=== PATIENT | female | born 1950 | race Caucasian/White ===

== ENCOUNTER → 2016-07-20 | Outpatient (CLI) | payer OTHER ==
[2016-07-20 09:12] LABS: BASOPHILS % (AUTO) 0.2 % (0.2-1.0); EOSINOPHILS # (AUTO) 0.1 x10^3/uL (0.0-0.2); EOSINOPHILS % (AUTO) 0.9 % (0.9-2.9); HEMATOCRIT 36.5 % (36.0-47.0); LYMPHOCYTES # (AUTO) 2.5 X10^3/uL (1.3-2.9); LYMPHOCYTES % (AUTO) 25.7 % (21.0-51.0); MEAN CORPUSCULAR HEMOGLOBIN 28.3 pg (27.0-34.0); MEAN CORPUSCULAR HGB CONC 32.9 g/dL (33.0-35.0); MEAN CORPUSCULAR VOLUME 86.2 fL (80.0-100.0); MEAN PLATELET VOLUME 7.6 fL (7.4-11.0); MONOCYTES # (AUTO) 0.7 x10^3/uL (0.3-0.8); MONOCYTES % (AUTO) 7.2 % (0.0-13.0); NEUTROPHILS # (AUTO) 6.4 x10^3/uL (2.2-4.8); PLATELET COUNT 258 X10^3/uL (150.0-450.0); RED BLOOD COUNT 4.24 X10^6/uL (3.5-5.4); RED CELL DISTRIBUTION WIDTH 13.7 % (11.6-16.5); WHITE BLOOD COUNT 9.7 X10^3/uL (3.6-10.0)
[2016-07-20 09:25] LABS: BILIRUBIN,URINE NEGATIVE (NEGATIVE); BLOOD/HEMOGLOBIN,URINE NEGATIVE (NEGATIVE); GLUCOSE, URINE NEGATIVE (NEGATIVE); KETONES,URINE NEGATIVE (NEGATIVE); LEUKOCYTE ESTERASE ,URINE 2+ (NEGATIVE); NITRITES,URINE NEGATIVE (NEGATIVE); PROTEIN,URINE NEGATIVE (NEGATIVE); UROBILINOGEN,URINE NORMAL (NORMAL)
[2016-07-20 09:34] LABS: ALANINE AMINOTRANSFERASE 21 Units/L (12-78); ALBUMIN 3.5 g/dL (3.4-5.0); ALKALINE PHOSPHATASE 70 Units/L (46-116); ASPARTATE AMINO TRANSFERASE 12 Units/L (15-37); BLOOD UREA NITROGEN 10 mg/dL (7-18); CALCIUM 8.6 mg/dL (8.5-10.1); CHLORIDE 109 mmol/L (98-107); GLUCOSE 92 mg/dL (65-99); SODIUM 145 mmol/L (136-145); TOTAL PROTEIN 7.2 g/dL (6.4-8.2); eGFR BLACK RACES > 60 (>60); eGFR NON BLACK RACES > 60 (>60)
[2016-07-20 09:50] LABS: AMORPHOUS SEDIMENT,UR 1+ /HPF (NEGATIVE); APPEARANCE,URINE CLEAR (CLEAR); BACTERIA,URINE NEGATIVE /HPF (NEGATIVE); COLOR,URINE PALE YELLOW (YELLOW); RBC,URINE NONE SEEN /HPF (NEGATIVE); SQUAMOUS EPITHELIAL CELL,UR RARE /HPF (NEGATIVE)
== END ==
LOC: LAB 08:36
PROVIDERS: ATTEND Neurological Surgery
DX: Z01.812 Encounter for preprocedural laboratory examination (principal); Z79.01 Long term (current) use of anticoagulants; G89.4 Chronic pain syndrome; M47.26 Other spondylosis with radiculopathy, lumbar region; Z79.899 Other long term (current) drug therapy
CPT/HCPCS: 36415; 80053; 81001; 85025

== ENCOUNTER → 2016-12-27 | Outpatient (CLI) | payer OTHER ==
[2016-12-27 10:42] LABS: ALANINE AMINOTRANSFERASE 22 Units/L (12-78); ALBUMIN 3.8 g/dL (3.4-5.0); ALKALINE PHOSPHATASE 53 Units/L (46-116); ASPARTATE AMINO TRANSFERASE 22 Units/L (15-37); BLOOD UREA NITROGEN 7 mg/dL (7-18); CALCIUM 8.6 mg/dL (8.5-10.1); CARBON DIOXIDE 27.2 mmol/L (21-32); CHLORIDE 107 mmol/L (98-107); CHOL/HDL RATIO 2.5 (0.0-5.0); CHOLESTEROL 131 mg/dL (0-200); CREATININE 0.65 mg/dL (0.55-1.02); FREE T4 (FREE THYROXINE) 1.16 ng/dL (0.76-1.46); HDL CHOLESTEROL 52 mg/dL (40-60); SODIUM 144 mmol/L (136-145); TOTAL PROTEIN 7.3 g/dL (6.4-8.2); TRIGLYCERIDES 161 mg/dL (0-150); TSH (3RD GENERATION) 2.984 uIU/mL (0.358-3.74); eGFR BLACK RACES > 60 (>60); eGFR NON BLACK RACES > 60 (>60)
== END ==
LOC: LAB 09:53
PROVIDERS: ATTEND Family Medicine
DX: E78.4 Other hyperlipidemia (principal); Z79.899 Other long term (current) drug therapy; E55.9 Vitamin D deficiency, unspecified; E03.8 Other specified hypothyroidism
CPT/HCPCS: 36415; 80053; 80061; 82306; 84439; 84443

== ENCOUNTER → 2017-07-23 | Outpatient (CLI) | payer OTHER ==
[2017-07-23 17:02] LABS: FREE T4 (FREE THYROXINE) 1.22 ng/dL (0.76-1.46); TSH (3RD GENERATION) 0.738 uIU/mL (0.358-3.74)
== END ==
LOC: LAB 16:20
PROVIDERS: ATTEND Family Medicine
DX: E03.8 Other specified hypothyroidism (principal); Z79.899 Other long term (current) drug therapy; R79.89 Other specified abnormal findings of blood chemistry
CPT/HCPCS: 36415; 83540; 83550; 84439; 84443

== ENCOUNTER 2023-09-14 13:39 | Inpatient (IN) ==
[2023-09-14] MEDS ORDERED: VOLTAREN 1 % GEL MULTI DOSE TUBE TOP PRN (13:57)
[2023-09-14] MEDS ORDERED: NYSTATIN SUSP PO PRN (13:57)
[2023-09-14] MEDS ORDERED: ASPIRIN EC 81 MG PO ONE (14:02)
[2023-09-14] MEDS ORDERED: NITROSTAT SL ONE (14:02)
[2023-09-14] MEDS ORDERED: SINGULAIR TAB 10 MG PO PRN (17:00)
[2023-09-14] MEDS: NORCO 5/325 MG TAB PO PRN (17:52)
[2023-09-14] MEDS: ZOFRAN ODT PO PRN (17:54)
[2023-09-14] MEDS: CARAFATE ORAL SUSP PO SCH (17:54)
[2023-09-14] MEDS: COREG TAB 12.5 MG PO SCH (21:14)
[2023-09-14] MEDS: EFFEXOR TAB 75 MG (BID DOSING) PO SCH (21:14)
[2023-09-14] MEDS: DESYREL PO SCH (21:14)
[2023-09-14] MEDS: ISOSORBIDE DINITRATE PO SCH (21:14)
[2023-09-14] MEDS: MELATONIN PO SCH (21:14)
[2023-09-14] MEDS: PLAQUENIL PO SCH (21:15)
[2023-09-14] MEDS: LIPITOR TAB 40 MG PO SCH (21:15)
[2023-09-14] MEDS: LYRICA CAP 50 mg PO SCH (21:15)
[2023-09-14] MEDS: MAG-OX TAB PO SCH (21:15)
[2023-09-15] MEDS: SYNTHROID 125 mcg TAB PO SCH (05:42)
[2023-09-15] MEDS: PriLOSEC PO SCH (08:14)
[2023-09-15] MEDS: PLAVIX PO SCH (08:15)
[2023-09-15] MEDS: ASPIRIN EC 81 MG PO ONE (08:27)
[2023-09-15] MEDS: VITAMIN B-12 PO SCH (08:27)
[2023-09-15] MEDS ORDERED: [UNRECOGNIZED DRUG - REMARK] XX SCH (09:00)
[2023-09-15 09:45] LABS: BASOPHILS # (AUTO) 0.1 X10^3/uL (0.0-0.1); BASOPHILS % (AUTO) 0.7 % (0.2-1.0); EOSINOPHILS # (AUTO) 0.9 x10^3/uL (0.0-0.2); EOSINOPHILS % (AUTO) 6.9 % (0.9-2.9); HEMATOCRIT 27.1 % (36.0-47.0); HEMOGLOBIN 9.2 g/dL (12.0-16.0); LYMPHOCYTES # (AUTO) 1.4 X10^3/uL (1.3-2.9); LYMPHOCYTES % (AUTO) 10.6 % (21.0-51.0); MEAN CORPUSCULAR HEMOGLOBIN 29.7 pg (27.0-34.0); MEAN CORPUSCULAR HGB CONC 33.8 g/dL (33.0-35.0); MEAN CORPUSCULAR VOLUME 87.7 fL (80.0-100.0); MONOCYTES # (AUTO) 0.9 x10^3/uL (0.3-0.8); MONOCYTES % (AUTO) 6.7 % (0.0-13.0); NEUTROPHILS # (AUTO) 10.1 x10^3/uL (2.2-4.8); NEUTROPHILS % (AUTO) 75.1 % (42.0-75.0); PLATELET COUNT 426 X10^3/uL (150.0-450.0); RED BLOOD COUNT 3.09 X10^6/uL (3.5-5.4); RED CELL DISTRIBUTION WIDTH 14.1 % (11.6-16.5); WHITE BLOOD COUNT 13.5 X10^3/uL (3.6-10.0)
[2023-09-15 09:57] LABS: ALANINE AMINOTRANSFERASE 21 Units/L (12-78); ALBUMIN 2.2 g/dL (3.4-5.0); ALKALINE PHOSPHATASE 88 Units/L (46-116); ASPARTATE AMINO TRANSFERASE 20 Units/L (15-37); BLOOD UREA NITROGEN 4 mg/dL (7-18); CALCIUM 7.8 mg/dL (8.5-10.1); CARBON DIOXIDE 25.4 mmol/L (21-32); CHLORIDE 106 mmol/L (98-107); COR CA(FOR HYPOALB) 9.2 mg/dL (8.5-10.1); CREATININE 0.49 mg/dL (0.55-1.02); GLUCOSE 100 mg/dL (65-99); POTASSIUM 3.8 mmol/L (3.5-5.1); SODIUM 138 mmol/L (136-145); TOTAL PROTEIN 5.5 g/dL (6.4-8.2); eGFR NON BLACK RACES > 60 (>60)
--- NOTE | 2023-09-15 14:46 | DR.H&P ---
H&P History & Physical for Day of: H&P Date: 09/15/23 Chief Complaint Chief Complaint: Generalized weakness History of Present Illness History of Present Illness: Patient is a 73-year-old female that was admitted to swing bed status after having colovaginal fistula repair along with aorta repair. Physical therapy has been ordered and patient will be working with them. She currently has Nev[place] in place due to urinary retention. Labs: WBC 13.5, hemoglobin 9.2, platelets 426, sodium 138, potassium 3.8, creatinine 0.49, glucose 100. Will restart home medications including pain medication. Physical therapy has been ordered. Otherwise continue current treatment plan. Continue closely monitor and follow-up labs. Past Surgical History Surgical History: Hysterectomy Family History Family Medical History: Hypertension Medications Home Medications: Home Medications Medication Instructions Recorded Confirmed Type atorvastatin 40 mg tablet 40 mg PO DAILY 06/13/21 09/15/23 History carvedilol 12.5 mg tablet 12.5 mg PO BID 06/13/21 09/15/23 History clopidogrel 75 mg tablet 75 mg PO HS 06/13/21 09/15/23 History hydrocodone 10 mg-acetaminophen 10 - 325 tab PO Q4-6H PRN 06/13/21 09/15/23 History 325 mg tablet hydroxychloroquine 200 mg tablet 200 mg PO DAILY 06/13/21 09/15/23 History isosorbide dinitrate 5 mg tablet 5 mg PO BID 06/13/21 09/15/23 History levothyroxine 125 mcg tablet 125 mcg PO QAM 06/13/21 09/15/23 History metoclopramide HCl 5 mg tablet 5 mg PO QID 06/13/21 09/15/23 History montelukast 10 mg tablet 10 mg PO DAILY 06/13/21 09/15/23 History omeprazole 40 mg capsule,delayed 40 mg PO BID 06/13/21 09/15/23 History release ferric maltol 30 mg capsule 30 mg PO BID 09/15/23 09/15/23 History (Eduardoer) trazodone 150 mg tablet 150 mg PO QPM 09/15/23 09/15/23 History Allergies Allergies Allergy/AdvReac Type Severity Reaction Status Date / Time No Known Drug Allergies Allergy Verified 09/14/23 17:40 Labs 09/15/23 09:41 09/15/23 09:41 Labs: Laboratory WBC 13.5 X10^3/uL (3.6-10.0) H 09/15/23 09:41 RBC 3.09 X10^6/uL (3.5-5.4) L 09/15/23 09:41 Hgb 9.2 g/dL (12.0-16.0) L 09/15/23 09:41 Hct 27.1 % (36.0-47.0) L 09/15/23 09:41 MCV 87.7 fL (80.0-100.0) 09/15/23 09:41 MCH 29.7 pg (27.0-34.0) 09/15/23 09:41 MCHC 33.8 g/dL (33.0-35.0) 09/15/23 09:41 RDW 14.1 % (11.6-16.5) 09/15/23 09:41 Plt Count 426 X10^3/uL (150.0-450.0) 09/15/23 09:41 MPV 7.0 fL (7.4-11.0) L 09/15/23 09:41 Neut % (Auto) 75.1 % (42.0-75.0) H 09/15/23 09:41 Lymph % (Auto) 10.6 % (21.0-51.0) L 09/15/23 09:41 [place] % (Auto) 6.7 % (0.0-13.0) 09/15/23 09:41 Eos % (Auto) 6.9 % (0.9-2.9) H 09/15/23 09:41 Baso % (Auto) 0.7 % (0.2-1.0) 09/15/23 09:41 Neut # (Auto) 10.1 x10^3/uL (2.2-4.8) H 09/15/23 09:41 Lymph # (Auto) 1.4 X10^3/uL (1.3-2.9) 09/15/23 09:41 [place] # (Auto) 0.9 x10^3/uL (0.3-0.8) H 09/15/23 09:41 Eos # (Auto) 0.9 x10^3/uL (0.0-0.2) H 09/15/23 09:41 Baso # (Auto) 0.1 X10^3/uL (0.0-0.1) 09/15/23 09:41 Absolute Nucleated RBC 0.0 /100WBC 09/15/23 09:41 Sodium 138 mmol/L (136-145) 09/15/23 09:41 Corrected Sodium TNP 09/15/23 09:41 Potassium 3.8 mmol/L (3.5-5.1) 09/15/23 09:41 Chloride 106 mmol/L (98-107) 09/15/23 09:41 Carbon Dioxide 25.4 mmol/L (21-32) 09/15/23 09:41 BUN 4 mg/dL (7-18) L 09/15/23 09:41 Creatinine 0.49 mg/dL (0.55-1.02) L 09/15/23 09:41 Est GFR (MDRD) Af Amer > 60 (>60) 09/15/23 09:41 Est GFR (MDRD) Non-Af > 60 (>60) 09/15/23 09:41 Glucose 100 mg/dL (65-99) H 09/15/23 09:41 Calcium 7.8 mg/dL (8.5-10.1) L 09/15/23 09:41 Corrected Calcium 9.2 mg/dL (8.5-10.1) 09/15/23 09:41 Total Bilirubin 0.40 mg/dL (0.2-1.0) 09/15/23 09:41 AST 20 Units/L (15-37) 09/15/23 09:41 ALT 21 Units/L (12-78) 09/15/23 09:41 Alkaline Phosphatase 88 Units/L (46-116) 09/15/23 09:41 Total Protein 5.5 g/dL (6.4-8.2) L 09/15/23 09:41 Albumin 2.2 g/dL (3.4-5.0) L 09/15/23 09:41 Globulin 3.3 g/dL (2.5-4.5) 09/15/23 09:41 Albumin/Globulin Ratio 0.7 Ratio (1.1-2.1) L 09/15/23 09:41 Review of Systems Constitutional: No Symptoms Reported Eyes: No Symptoms Reported ENT: No Symptoms Reported Respiratory: No Symptoms Reported Cardiovascular: No Symptoms Reported Gastrointestinal: Abdominal Pain Genitourinary: No Symptoms Reported Musculoskeletal: No Symptoms Reported Skin: No Symptoms Reported Neurological: No Symptoms Reported Physical Exam Vital Signs: Vital Signs Respiratory Rate 18 Oriented: Normal Eyes: Normal Ear: Normal Nose: Normal Throat: Normal Respiratory: Clear Throughout Cardiovascular: Normal : Normal Auscultation: Bowel Sounds: Normal Palpation: Normal Tenderness: Mild Skin: Other (abdominal mark noted) Musculoskeletal: Normal Psychiatric: Normal Mood Description: Calm and Appropriate Affect: Normal Speech Pattern: Clear and Appropriate Assessment/Plan (1) Colovaginal fistula: Status: Acute (2) Hypothyroidism: Status: Acute (3) GERD (gastroesophageal reflux disease): Status: Acute (4) Hyperlipidemia: Status: Acute (5) Hypertension: Status: Acute Review H&P Reviewed: Yes Patient was examined?: Yes
[2023-09-15] MEDS: NORCO 10/325 TAB PO PRN (14:48)
--- NOTE | 2023-09-15 16:41 | PT/OTEVAL ---
PT/OT OBJECTIVES - HISTORY Precautions: Rapid fatigue PMH: Colovaginal fistula with aortic repair, HTN, CAD (on anticoagulants) Complexities/Comorbities: Diverticulosis Prior Level of Function: Independent - COGNITION Mental Status: Alert Communication Status: Verbal Affect: Calm - BED MOBILITY Rolling: Independent - TRANSFERS Supine to Sit: Supervision Sit to Stand: Minimal, Not Tested Sit to Stand Comment: Needed to hold onto something to pull to sitting Sit or Stand Pivot: Minimal Toileting: Not Tested - GAIT Pt. ambulates how many feet?: 0 (Gait deferred due to fatigue) - TREATMENT Date: 09/15/23 Treatment Type: Evaluation Treatment Provided: Therapeutic Activities - TOTAL TREATMENT TIME Total Time: 60 - EXIT DISPOSITION Exit Position: CHAIR Comments: Nursing aware; transfers with Min A/CGA PT/OT ASSESSMENT - PT Problem List: Decreased Transfers, Decreased Gait Other, Comment: Poor endurance - PT GOALS Car Dumper Operator Helper Goals Transfers: Transfers with RI Gait: Gait 50' with CGA/SBA ROM/Strength: Increase BLE ROM to 4+/5 to enhance endurance Short Term Goals Days: 5 Mobility: CGA Transfers: SBA Gait: Gait 20' with FWW with CGA - FREQUENCY AND DURATION PT: 5-6X per week Expected Continuation of Care at Discharge: Outpatient Therapy, Determined on Progress Comments: Will need FWW
[2023-09-15] MEDS: SOMA TAB 350 MG PO PRN (18:31)
[2023-09-16 07:54] VITALS: BMI 25.9
[2023-09-17 06:16] LABS: BASOPHILS # (AUTO) 0.1 X10^3/uL (0.0-0.1); BASOPHILS % (AUTO) 0.7 % (0.2-1.0); EOSINOPHILS % (AUTO) 10.3 % (0.9-2.9); HEMATOCRIT 26.9 % (36.0-47.0); HEMOGLOBIN 9.3 g/dL (12.0-16.0); LYMPHOCYTES # (AUTO) 1.6 X10^3/uL (1.3-2.9); LYMPHOCYTES % (AUTO) 16.6 % (21.0-51.0); MEAN CORPUSCULAR HEMOGLOBIN 30.5 pg (27.0-34.0); MEAN CORPUSCULAR HGB CONC 34.6 g/dL (33.0-35.0); MEAN CORPUSCULAR VOLUME 88.2 fL (80.0-100.0); MEAN PLATELET VOLUME 7.1 fL (7.4-11.0); MONOCYTES # (AUTO) 0.9 x10^3/uL (0.3-0.8); NEUTROPHILS # (AUTO) 6.3 x10^3/uL (2.2-4.8); NEUTROPHILS % (AUTO) 63.4 % (42.0-75.0); PLATELET COUNT 394 X10^3/uL (150.0-450.0); RED BLOOD COUNT 3.05 X10^6/uL (3.5-5.4); RED CELL DISTRIBUTION WIDTH 13.9 % (11.6-16.5)
[2023-09-17 06:38] LABS: ALANINE AMINOTRANSFERASE 16 Units/L (12-78); ALBUMIN 2.4 g/dL (3.4-5.0); ALKALINE PHOSPHATASE 87 Units/L (46-116); ASPARTATE AMINO TRANSFERASE 16 Units/L (15-37); BLOOD UREA NITROGEN 7 mg/dL (7-18); CALCIUM 8.2 mg/dL (8.5-10.1); CARBON DIOXIDE 28.8 mmol/L (21-32); CHLORIDE 104 mmol/L (98-107); COR CA(FOR HYPOALB) 9.5 mg/dL (8.5-10.1); CREATININE 0.59 mg/dL (0.55-1.02); GLUCOSE 85 mg/dL (65-99); POTASSIUM 3.9 mmol/L (3.5-5.1); SODIUM 138 mmol/L (136-145); TOTAL PROTEIN 5.6 g/dL (6.4-8.2); eGFR NON BLACK RACES > 60 (>60)
--- NOTE | 2023-09-17 11:42 | PCM.PROG ---
Progress Note Progress Note for Day of Date of Exam: 09/17/23 Subjective Subjective: Patient seen at bedside, no acute events overnight. She is currently admitted as swing bed status after having colovaginal fistula and aorta repair. She has been doing well since she got here. She did work with therapy on Sunday. Her abdominal pain is well-controlled, dressing was changed yesterday, Labs/imaging reviewed -Hgb 9.3 WBC:10 Plan: continue PT/OT as tolerated. Continue home medications. Replace electrolytes as per protocol. Check labs prn. Past Medical Family Social History Allergies: Allergies No Known Drug Allergies Allergy (Verified 09/14/23 17:40) Vital Signs and I&O's Vital Signs: Vital Signs Respiratory Rate 18 Respiratory Rate 18 Respiratory Rate 20 Intake and Output: Intake & Output 09/14/23 09/15/23 09/16/23 09/17/23 23:59 23:59 23:59 23:59 Intake Total 300 / 300 300 / 300 200 / 200 100 / 100 Output Total 600 / 600 2600 / 2600 300 / 300 Balance -300 / -300 -2300 / -2300 -100 / -100 100 / 100 Physical Exam Oriented: Normal Eyes: Normal Ear: Normal Nose: Normal Throat: Normal Cardiovascular: Normal Auscultation: Bowel Sounds: Normal Palpation: Normal Tenderness: Mild Skin: Other (abdominal mark noted) Musculoskeletal: Normal Psychiatric: Normal Mood Description: Calm and Appropriate Affect: Normal Speech Pattern: Clear and Appropriate Laboratory and Diagnostics 09/17/23 05:32 09/17/23 05:32 Labs: Laboratory WBC 10.0 X10^3/uL (3.6-10.0) 09/17/23 05:32 RBC 3.05 X10^6/uL (3.5-5.4) L 09/17/23 05:32 Hgb 9.3 g/dL (12.0-16.0) L 09/17/23 05:32 Hct 26.9 % (36.0-47.0) L 09/17/23 05:32 MCV 88.2 fL (80.0-100.0) 09/17/23 05:32 MCH 30.5 pg (27.0-34.0) 09/17/23 05:32 MCHC 34.6 g/dL (33.0-35.0) 09/17/23 05:32 RDW 13.9 % (11.6-16.5) 09/17/23 05:32 Plt Count 394 X10^3/uL (150.0-450.0) 09/17/23 05:32 MPV 7.1 fL (7.4-11.0) L 09/17/23 05:32 Neut % (Auto) 63.4 % (42.0-75.0) 09/17/23 05:32 Lymph % (Auto) 16.6 % (21.0-51.0) L 09/17/23 05:32 [place] % (Auto) 9.0 % (0.0-13.0) 09/17/23 05:32 Eos % (Auto) 10.3 % (0.9-2.9) H 09/17/23 05:32 Baso % (Auto) 0.7 % (0.2-1.0) 09/17/23 05:32 Neut # (Auto) 6.3 x10^3/uL (2.2-4.8) H 09/17/23 05:32 Lymph # (Auto) 1.6 X10^3/uL (1.3-2.9) 09/17/23 05:32 [place] # (Auto) 0.9 x10^3/uL (0.3-0.8) H 09/17/23 05:32 Eos # (Auto) 1.0 x10^3/uL (0.0-0.2) H 09/17/23 05:32 Baso # (Auto) 0.1 X10^3/uL (0.0-0.1) 09/17/23 05:32 Absolute Nucleated RBC 0.0 /100WBC 09/17/23 05:32 Sodium 138 mmol/L (136-145) 09/17/23 05:32 Corrected Sodium TNP 09/17/23 05:32 Potassium 3.9 mmol/L (3.5-5.1) 09/17/23 05:32 Chloride 104 mmol/L (98-107) 09/17/23 05:32 Carbon Dioxide 28.8 mmol/L (21-32) 09/17/23 05:32 BUN 7 mg/dL (7-18) 09/17/23 05:32 Creatinine 0.59 mg/dL (0.55-1.02) 09/17/23 05:32 Est GFR (MDRD) Af Amer > 60 (>60) 09/17/23 05:32 Est GFR (MDRD) Non-Af > 60 (>60) 09/17/23 05:32 Glucose 85 mg/dL (65-99) 09/17/23 05:32 Calcium 8.2 mg/dL (8.5-10.1) L 09/17/23 05:32 Corrected Calcium 9.5 mg/dL (8.5-10.1) 09/17/23 05:32 Total Bilirubin 0.50 mg/dL (0.2-1.0) 09/17/23 05:32 AST 16 Units/L (15-37) 09/17/23 05:32 ALT 16 Units/L (12-78) 09/17/23 05:32 Alkaline Phosphatase 87 Units/L (46-116) 09/17/23 05:32 Total Protein 5.6 g/dL (6.4-8.2) L 09/17/23 05:32 Albumin 2.4 g/dL (3.4-5.0) L 09/17/23 05:32 Globulin 3.2 g/dL (2.5-4.5) 09/17/23 05:32 Albumin/Globulin Ratio 0.8 Ratio (1.1-2.1) L 09/17/23 05:32 Plan (1) Colovaginal fistula: Status: Acute (2) Hypothyroidism: Status: Acute Qualifiers: Hypothyroidism type: acquired Qualified Code(s): E03.9 - Hypothyroidism, unspecified (3) GERD (gastroesophageal reflux disease): Status: Acute Qualifiers: Esophagitis presence: esophagitis presence not specified Qualified Code(s): K21.9 - Gastro-esophageal reflux disease without esophagitis (4) Hyperlipidemia: Status: Acute Qualifiers: Hyperlipidemia type: mixed hyperlipidemia Qualified Code(s): E78.2 - Mixed hyperlipidemia (5) Hypertension: Status: Acute Qualifiers: Hypertension type: primary hypertension Qualified Code(s): I10 - Essential (primary) hypertension
--- NOTE | 2023-09-17 16:18 | PT/OTEVAL ---
PT/OT OBJECTIVES - HISTORY Prescription: OT Consult Diagnosis: Colovaginal fistula/aortic repair Precautions: Fall risk PMH: HLD, Hypothyroidism, Asthma, GERD, CAD, Spinal Fusion (5 total back surgeries) Prior Level of Function: Independent Other: Per pt report pt lives with her in a 1 story home with 1 step without handrails. She is (I) with ADLs and IADLs. She uses a rollator at night to get to the restroom at night. DME includes a shower bench, and said she can borrow a BSC from a friend if she needs it. Stated that she has back pain across her back and it runs down her legs 8/10 consistently. History of Present Illness: Pt is a 73 year old female who was admitted to [facility] on the afternoon of 09/14/2023 for swing bed program for rehab due to recent hospitalization and inability to safely return home. Pt was admitted to hospital in [place] for colovaginal fistula and underwent sigmoid colectomy and aortic repair on 09/03/2023 with her hospital course complicated by urinary retention and stay in the ICU. - COGNITION Mental Status: Alert, Oriented, Name, Place, Purpose Communication Status: Verbal Ability to Follow Directions: 2 Step Memory Loss: None Affect: Calm - BED MOBILITY Rolling: Supervision - TRANSFERS Supine to Sit: Supervision Sit to Stand: Supervision Sit or Stand Pivot: Supervision Toileting: Supervision - ADL'S Grooming: Minimum Upper Body ADL: Supervision Lower Body ADL: Minimum Lower Body ADL: Difficulty with reaching feet and getting pants/underwear up Toileting: Supervision Bathing: Minimum Bathing Comment: Difficulty with getting to feet. Hygeine: Supervision - BALANCE Static Sitting: Fair Standing: Fair Balance Comment: CGA for sitting balance, with VC for leaning backwards for to maintain balance. - HAND DOMINANCE Extremity Function: Hand Dominance: Right - ROM Bilateral UE ROM: WFL - STRENGTH Bilateral UE Strength Number: 4 Other comment: 4-/5 in BUE - GAIT Amount of Assistance Required: Supervision Type of Assistive Device: Rolling Walker Comments: CGA for safety - TREATMENT Date: 09/17/23 Time: 09:00 Treatment Type: Evaluation Treatment Provided: Other - TOTAL TREATMENT TIME Total Time: 70 - POST ASSESSMENT Post Assessment Comment: Pt was seen by skilled OT to assess CLOF. Pt was able to give PLOF and hx. Pt completed showering task this date. Pt showered with min A for LB and supv A for UB, with therapist A with bathing her back. Pt would benefit from a long handle sponge to reach her feet and her back. Pt fu nctionally AMB with RW and CGA for safety due to unsteadiness. Pt requires extra time during shower activity, as she fatigues easily. MIN A with donning pants and socks and completing grooming due to fatigue. Pt got back into bed due to fatigue. Pt would continue to benefit from skilled OT to improve (I) and safety with ADL self care skills, FAT, MMT functional transfers and balance needed to facilitate safe d/c planning. - EXIT DISPOSITION Exit Position: BED Call light in reach: Yes PT/OT ASSESSMENT - OT Problem List: Decreased Mobility ADL's, Decreased Dressing, Decreased Bathing, Decreased Grooming, Decreased UE Strength - PT GOALS Long-Term Goals Transfers: Gait: ROM/Strength: Short Term Goals Days: Mobility: Transfers: Gait: - OT GOALS Liquefaction And Regasification Helper Goals Days: 20 Mobility for ADL's: Pt to improve functional mobility to bathroom with LRAD and set up A. Dressing: Pt to improve LB dressing to set up A Bathing: Pt to improve overall bathing to set up A with AE as needed Upper Ext. Strength/Use: Pt to improve MMT in BUE by 1 grade Short Term Goals Days: 10 Mobility for ADL's: Pt to improve functional mobility to bathroom with LRAD and supv A. Dressing: Pt to improve UB dressing to set up A Bathing: Pt to improve overall bathing to supv A with AE as needed Grooming: Pt to improve grooming to (I) - PATIENT GOALS Patient/Family Goals: To go home and be (I) Goals Discussed with Patient/Family: Yes Rehabilitation Potential: Good to meet stated goals Justification for Potential: To facilitate highest level of ADL function needed for safe d/c planning. Weakness and Barriers: Pain - PLAN Suggested Treatment Plan: Therapeutic Activity, Self Care Training, Therapeutic Ex with HEP, Patient Education - FREQUENCY AND DURATION OT: 5x a week x 20 days Expected Continuation of Care at Discharge: Home
[2023-09-19 06:47] LABS: BASOPHILS # (AUTO) 0.1 X10^3/uL (0.0-0.1); BASOPHILS % (AUTO) 0.9 % (0.2-1.0); EOSINOPHILS # (AUTO) 0.7 x10^3/uL (0.0-0.2); EOSINOPHILS % (AUTO) 6.5 % (0.9-2.9); HEMATOCRIT 28.5 % (36.0-47.0); HEMOGLOBIN 9.7 g/dL (12.0-16.0); LYMPHOCYTES # (AUTO) 1.9 X10^3/uL (1.3-2.9); LYMPHOCYTES % (AUTO) 18.4 % (21.0-51.0); MEAN CORPUSCULAR HEMOGLOBIN 30.4 pg (27.0-34.0); MEAN CORPUSCULAR HGB CONC 34.1 g/dL (33.0-35.0); MEAN CORPUSCULAR VOLUME 89.1 fL (80.0-100.0); MEAN PLATELET VOLUME 7.3 fL (7.4-11.0); MONOCYTES # (AUTO) 0.9 x10^3/uL (0.3-0.8); MONOCYTES % (AUTO) 8.5 % (0.0-13.0); NEUTROPHILS # (AUTO) 6.8 x10^3/uL (2.2-4.8); NEUTROPHILS % (AUTO) 65.7 % (42.0-75.0); PLATELET COUNT 422 X10^3/uL (150.0-450.0); RED CELL DISTRIBUTION WIDTH 14.6 % (11.6-16.5); WHITE BLOOD COUNT 10.3 X10^3/uL (3.6-10.0)
[2023-09-19 06:58] LABS: ALANINE AMINOTRANSFERASE 13 Units/L (12-78); ALBUMIN 2.4 g/dL (3.4-5.0); ALKALINE PHOSPHATASE 83 Units/L (46-116); ASPARTATE AMINO TRANSFERASE 15 Units/L (15-37); BLOOD UREA NITROGEN 5 mg/dL (7-18); CALCIUM 8.2 mg/dL (8.5-10.1); CARBON DIOXIDE 28.2 mmol/L (21-32); CHLORIDE 103 mmol/L (98-107); COR CA(FOR HYPOALB) 9.5 mg/dL (8.5-10.1); CREATININE 0.65 mg/dL (0.55-1.02); GLUCOSE 90 mg/dL (65-99); MAGNESIUM 1.8 mg/dL (2.0-2.9); POTASSIUM 3.6 mmol/L (3.5-5.1); SODIUM 139 mmol/L (136-145); TOTAL PROTEIN 5.7 g/dL (6.4-8.2); eGFR NON BLACK RACES > 60 (>60)
--- NOTE | 2023-09-19 10:58 | PCM.PROG ---
Progress Note Progress Note for Day of Date of Exam: 09/19/23 Subjective Subjective: Patient seen at bedside, no acute events overnight. She is currently admitted as swing bed status after having colovaginal fistula and aorta repair. She reports having increased nausea and diarrhea since yesterday. She also states her urine has a foul odor. She has not been eating much. Denies abdominal pain. Her dressing was changed earlier this morning. She has been working with PT. Labs/imaging reviewed -Hgb 9.7 WBC:10.3 BUN/Cr: 5/0.65 Ma.8 Plan: Will check stool studies and UA. Continue zofran prn, protonix and carafate. Add Ensure. Nutrition consult. Wound dressing as per instructions. Continue PT/OT as tolerated. Continue home medications. Replace electrolytes as per protocol. Past Medical Family Social History Allergies: Allergies No Known Drug Allergies Allergy (Verified 09/14/23 17:40) Vital Signs and I&O's Vital Signs: Vital Signs Temperature 98.3 F Pulse Rate [Left Brachial] 84 Respiratory Rate 16 Respiratory Rate 17 Respiratory Rate 22 Blood Pressure [Left Arm] 108/56 O2 Sat by Pulse Oximetry 92 Intake and Output: Intake & Output 09/16/23 09/17/23 09/18/23 09/19/23 23:59 23:59 23:59 23:59 Intake Total 200 / 200 770 / 770 610 / 610 Output Total 300 / 300 Balance -100 / -100 770 / 770 610 / 610 Physical Exam Oriented: Normal Eyes: Normal Ear: Normal Nose: Normal Throat: Normal Cardiovascular: Normal Auscultation: Bowel Sounds: Normal Palpation: Normal Tenderness: Mild Skin: Other (abdominal mark noted) Musculoskeletal: Normal Psychiatric: Normal Mood Description: Calm and Appropriate Affect: Normal Speech Pattern: Clear and Appropriate Laboratory and Diagnostics 09/19/23 05:52 09/19/23 05:52 Labs: Laboratory WBC 10.3 X10^3/uL (3.6-10.0) H 09/19/23 05:52 RBC 3.20 X10^6/uL (3.5-5.4) L 09/19/23 05:52 Hgb 9.7 g/dL (12.0-16.0) L 09/19/23 05:52 Hct 28.5 % (36.0-47.0) L 09/19/23 05:52 MCV 89.1 fL (80.0-100.0) 09/19/23 05:52 MCH 30.4 pg (27.0-34.0) 09/19/23 05:52 MCHC 34.1 g/dL (33.0-35.0) 09/19/23 05:52 RDW 14.6 % (11.6-16.5) 09/19/23 05:52 Plt Count 422 X10^3/uL (150.0-450.0) 09/19/23 05:52 MPV 7.3 fL (7.4-11.0) L 09/19/23 05:52 Neut % (Auto) 65.7 % (42.0-75.0) 09/19/23 05:52 Lymph % (Auto) 18.4 % (21.0-51.0) L 09/19/23 05:52 [place] % (Auto) 8.5 % (0.0-13.0) 09/19/23 05:52 Eos % (Auto) 6.5 % (0.9-2.9) H 09/19/23 05:52 Baso % (Auto) 0.9 % (0.2-1.0) 09/19/23 05:52 Neut # (Auto) 6.8 x10^3/uL (2.2-4.8) H 09/19/23 05:52 Lymph # (Auto) 1.9 X10^3/uL (1.3-2.9) 09/19/23 05:52 [place] # (Auto) 0.9 x10^3/uL (0.3-0.8) H 09/19/23 05:52 Eos # (Auto) 0.7 x10^3/uL (0.0-0.2) H 09/19/23 05:52 Baso # (Auto) 0.1 X10^3/uL (0.0-0.1) 09/19/23 05:52 Absolute Nucleated RBC 0.1 /100WBC 09/19/23 05:52 Sodium 139 mmol/L (136-145) 09/19/23 05:52 Corrected Sodium TNP 09/19/23 05:52 Potassium 3.6 mmol/L (3.5-5.1) 09/19/23 05:52 Chloride 103 mmol/L (98-107) 09/19/23 05:52 Carbon Dioxide 28.2 mmol/L (21-32) 09/19/23 05:52 BUN 5 mg/dL (7-18) L 09/19/23 05:52 Creatinine 0.65 mg/dL (0.55-1.02) 09/19/23 05:52 Est GFR (MDRD) Af Amer > 60 (>60) 09/19/23 05:52 Est GFR (MDRD) Non-Af > 60 (>60) 09/19/23 05:52 Glucose 90 mg/dL (65-99) 09/19/23 05:52 Calcium 8.2 mg/dL (8.5-10.1) L 09/19/23 05:52 Corrected Calcium 9.5 mg/dL (8.5-10.1) 09/19/23 05:52 Magnesium 1.8 mg/dL (2.0-2.9) L 09/19/23 05:52 Total Bilirubin 0.30 mg/dL (0.2-1.0) 09/19/23 05:52 AST 15 Units/L (15-37) 09/19/23 05:52 ALT 13 Units/L (12-78) 09/19/23 05:52 Alkaline Phosphatase 83 Units/L (46-116) 09/19/23 05:52 Total Protein 5.7 g/dL (6.4-8.2) L 09/19/23 05:52 Albumin 2.4 g/dL (3.4-5.0) L 09/19/23 05:52 Globulin 3.3 g/dL (2.5-4.5) 09/19/23 05:52 Albumin/Globulin Ratio 0.7 Ratio (1.1-2.1) L 09/19/23 05:52 Plan (1) Colovaginal fistula: Status: Acute (2) Hypothyroidism: Status: Acute Qualifiers: Hypothyroidism type: acquired Qualified Code(s): E03.9 - Hypothyroidism, unspecified (3) GERD (gastroesophageal reflux disease): Status: Acute Qualifiers: Esophagitis presence: esophagitis presence not specified Qualified Code(s): K21.9 - Gastro-esophageal reflux disease without esophagitis (4) Hyperlipidemia: Status: Acute Qualifiers: Hyperlipidemia type: mixed hyperlipidemia Qualified Code(s): E78.2 - Mixed hyperlipidemia (5) Hypertension: Status: Acute Qualifiers: Hypertension type: primary hypertension Qualified Code(s): I10 - Essential (primary) hypertension
[2023-09-19 15:29] LABS: BILIRUBIN,URINE NEGATIVE (NEGATIVE); BLOOD/HEMOGLOBIN,URINE 2+ (NEGATIVE); GLUCOSE, URINE NEGATIVE (NEGATIVE); KETONES,URINE NEGATIVE (NEGATIVE); LEUKOCYTE ESTERASE ,URINE 3+ (NEGATIVE); NITRITES,URINE NEGATIVE (NEGATIVE); PROTEIN,URINE 2+ (NEGATIVE); UROBILINOGEN,URINE NORMAL (NORMAL)
[2023-09-19 15:33] LABS: APPEARANCE,URINE CLOUDY (CLEAR); COLOR,URINE YELLOW (YELLOW)
[2023-09-19 15:39] LABS: BACTERIA,URINE 3+ /HPF (NEGATIVE); SQUAMOUS EPITHELIAL CELL,UR RARE /HPF (NEGATIVE)
[2023-09-20] MEDS: MACROBID CAP 100 MG EXT REL PO SCH (10:20)
[2023-09-21 06:05] LABS: BASOPHILS # (AUTO) 0.1 X10^3/uL (0.0-0.1); BASOPHILS % (AUTO) 1.3 % (0.2-1.0); EOSINOPHILS # (AUTO) 0.5 x10^3/uL (0.0-0.2); EOSINOPHILS % (AUTO) 7.9 % (0.9-2.9); HEMATOCRIT 30.4 % (36.0-47.0); HEMOGLOBIN 10.3 g/dL (12.0-16.0); LYMPHOCYTES # (AUTO) 1.8 X10^3/uL (1.3-2.9); LYMPHOCYTES % (AUTO) 26.4 % (21.0-51.0); MEAN CORPUSCULAR HEMOGLOBIN 30.5 pg (27.0-34.0); MEAN CORPUSCULAR VOLUME 89.7 fL (80.0-100.0); MEAN PLATELET VOLUME 7.1 fL (7.4-11.0); MONOCYTES # (AUTO) 0.7 x10^3/uL (0.3-0.8); MONOCYTES % (AUTO) 10.9 % (0.0-13.0); NEUTROPHILS # (AUTO) 3.7 x10^3/uL (2.2-4.8); NEUTROPHILS % (AUTO) 53.5 % (42.0-75.0); PLATELET COUNT 421 X10^3/uL (150.0-450.0); RED BLOOD COUNT 3.39 X10^6/uL (3.5-5.4); RED CELL DISTRIBUTION WIDTH 15.1 % (11.6-16.5); WHITE BLOOD COUNT 6.8 X10^3/uL (3.6-10.0)
[2023-09-21 06:21] LABS: ALANINE AMINOTRANSFERASE 13 Units/L (12-78); ALBUMIN 2.4 g/dL (3.4-5.0); ALKALINE PHOSPHATASE 79 Units/L (46-116); ASPARTATE AMINO TRANSFERASE 18 Units/L (15-37); BLOOD UREA NITROGEN 4 mg/dL (7-18); CALCIUM 8.3 mg/dL (8.5-10.1); CARBON DIOXIDE 28.8 mmol/L (21-32); CHLORIDE 104 mmol/L (98-107); COR CA(FOR HYPOALB) 9.6 mg/dL (8.5-10.1); GLUCOSE 93 mg/dL (65-99); MAGNESIUM 1.9 mg/dL (2.0-2.9); POTASSIUM 3.9 mmol/L (3.5-5.1); SODIUM 140 mmol/L (136-145); TOTAL PROTEIN 5.6 g/dL (6.4-8.2); eGFR NON BLACK RACES > 60 (>60)
[2023-09-21] MEDS: LEVAQUIN TAB 500 MG PO SCH (09:27)
[2023-09-21] MEDS: VANCOMYCIN HCL 250 MG CAP PO SCH (16:47)
[2023-09-21] MEDS: VANCOMYCIN HCL 250 MG CAP PO ONE (17:49)
[2023-09-24 04:53] LABS: BASOPHILS # (AUTO) 0.1 X10^3/uL (0.0-0.1); BASOPHILS % (AUTO) 1.2 % (0.2-1.0); EOSINOPHILS # (AUTO) 0.3 x10^3/uL (0.0-0.2); EOSINOPHILS % (AUTO) 6.4 % (0.9-2.9); HEMATOCRIT 30.3 % (36.0-47.0); HEMOGLOBIN 10.2 g/dL (12.0-16.0); LYMPHOCYTES # (AUTO) 1.5 X10^3/uL (1.3-2.9); LYMPHOCYTES % (AUTO) 27.5 % (21.0-51.0); MEAN CORPUSCULAR HEMOGLOBIN 30.1 pg (27.0-34.0); MEAN CORPUSCULAR HGB CONC 33.6 g/dL (33.0-35.0); MEAN CORPUSCULAR VOLUME 89.5 fL (80.0-100.0); MEAN PLATELET VOLUME 7.3 fL (7.4-11.0); MONOCYTES # (AUTO) 0.7 x10^3/uL (0.3-0.8); MONOCYTES % (AUTO) 12.6 % (0.0-13.0); NEUTROPHILS # (AUTO) 2.8 x10^3/uL (2.2-4.8); NEUTROPHILS % (AUTO) 52.3 % (42.0-75.0); PLATELET COUNT 331 X10^3/uL (150.0-450.0); RED BLOOD COUNT 3.38 X10^6/uL (3.5-5.4); RED CELL DISTRIBUTION WIDTH 14.8 % (11.6-16.5); WHITE BLOOD COUNT 5.4 X10^3/uL (3.6-10.0)
[2023-09-24 05:04] LABS: ALANINE AMINOTRANSFERASE 11 Units/L (12-78); ALBUMIN 2.4 g/dL (3.4-5.0); ALKALINE PHOSPHATASE 71 Units/L (46-116); ASPARTATE AMINO TRANSFERASE 15 Units/L (15-37); BLOOD UREA NITROGEN 4 mg/dL (7-18); CALCIUM 8.2 mg/dL (8.5-10.1); CARBON DIOXIDE 28.3 mmol/L (21-32); CHLORIDE 105 mmol/L (98-107); COR CA(FOR HYPOALB) 9.5 mg/dL (8.5-10.1); CREATININE 0.63 mg/dL (0.55-1.02); GLUCOSE 103 mg/dL (65-99); POTASSIUM 3.2 mmol/L (3.5-5.1); SODIUM 142 mmol/L (136-145); TOTAL PROTEIN 5.5 g/dL (6.4-8.2); eGFR NON BLACK RACES > 60 (>60)
[2023-09-24] MEDS ORDERED: CONSULT PHARMACY - POTASSIUM & MAGNESIUM XX SCH ×3 (06:00→07:00)
[2023-09-24] MEDS: MAG-OX TAB PO SCH ×2 (08:51→21:31)
[2023-09-24] MEDS: K-DUR TAB 20 MEQ PO SCH (08:53)
--- NOTE | 2023-09-24 09:47 | PCM.PROG ---
Progress Note Progress Note for Day of Date of Exam: 09/24/23 Subjective Subjective: Patient seen at bedside, no acute events overnight. She states she continues to have loose stools. She has some abdominal cramping. She has been drinking Ensure but not eating much. She states she would like to eat more fruits and yogurt. She is currently swing bed status for PT. She tested positive for C diff infection and UTI. She is currently on PO Vancomycin and Levaquin. Labs/imaging reviewed -Hgb 10.2 WBC:5.4 BUN/Cr: 4/0.63 Ma.7 Plan: Change diet, add fruit/yogurt. Add pro-biotic. Replace electrolytes as per protocol. Continue PO Vancomycin and Levaquin. Continue home medications. PT as tolerated. Monitor AM labs. Past Medical Family Social History Allergies: Allergies No Known Drug Allergies Allergy (Verified 09/14/23 17:40) Vital Signs and I&O's Vital Signs: Vital Signs Temperature 98.3 F Pulse Rate [Left Brachial] 99 Respiratory Rate 18 Respiratory Rate 20 Respiratory Rate 20 Blood Pressure [Left Arm] 102/59 O2 Sat by Pulse Oximetry 91 Intake and Output: Intake & Output 09/21/23 09/22/23 09/23/23 09/24/23 23:59 23:59 23:59 23:59 Intake Total 580 / 580 980 / 980 1240 / 1240 0 / 0 Balance 580 / 580 980 / 980 1240 / 1240 0 / 0 Physical Exam Oriented: Normal Eyes: Normal Ear: Normal Nose: Normal Throat: Normal Respiratory: Normal Cardiovascular: Normal Auscultation: Bowel Sounds: Normal Palpation: Normal Tenderness: Mild Skin: Other (abdominal mark noted) Musculoskeletal: Normal Psychiatric: Normal Mood Description: Calm and Appropriate Affect: Normal Speech Pattern: Clear and Appropriate Laboratory and Diagnostics 09/24/23 04:26 09/24/23 04:26 Labs: 09/21/23 10:50 Stool Stool Culture - Final 09/21/23 10:50 Stool - Final 09/19/23 15:00 Urine,Clean Catch Urine Culture - Final Enterobacter Aerogenes Enterococcus Faecalis Laboratory WBC 5.4 X10^3/uL (3.6-10.0) 09/24/23 04:26 RBC 3.38 X10^6/uL (3.5-5.4) L 09/24/23 04:26 Hgb 10.2 g/dL (12.0-16.0) L 09/24/23 04:26 Hct 30.3 % (36.0-47.0) L 09/24/23 04:26 MCV 89.5 fL (80.0-100.0) 09/24/23 04:26 MCH 30.1 pg (27.0-34.0) 09/24/23 04:26 MCHC 33.6 g/dL (33.0-35.0) 09/24/23 04:26 RDW 14.8 % (11.6-16.5) 09/24/23 04:26 Plt Count 331 X10^3/uL (150.0-450.0) 09/24/23 04:26 MPV 7.3 fL (7.4-11.0) L 09/24/23 04:26 Neut % (Auto) 52.3 % (42.0-75.0) 09/24/23 04:26 Lymph % (Auto) 27.5 % (21.0-51.0) 09/24/23 04:26 [place] % (Auto) 12.6 % (0.0-13.0) 09/24/23 04:26 Eos % (Auto) 6.4 % (0.9-2.9) H 09/24/23 04:26 Baso % (Auto) 1.2 % (0.2-1.0) H 09/24/23 04:26 Neut # (Auto) 2.8 x10^3/uL (2.2-4.8) 09/24/23 04:26 Lymph # (Auto) 1.5 X10^3/uL (1.3-2.9) 09/24/23 04:26 [place] # (Auto) 0.7 x10^3/uL (0.3-0.8) 09/24/23 04:26 Eos # (Auto) 0.3 x10^3/uL (0.0-0.2) H 09/24/23 04:26 Baso # (Auto) 0.1 X10^3/uL (0.0-0.1) 09/24/23 04:26 Absolute Nucleated RBC 0.1 /100WBC 09/24/23 04:26 Sodium 142 mmol/L (136-145) 09/24/23 04:26 Corrected Sodium TNP 09/24/23 04:26 Potassium 3.2 mmol/L (3.5-5.1) L 09/24/23 04:26 Chloride 105 mmol/L (98-107) 09/24/23 04:26 Carbon Dioxide 28.3 mmol/L (21-32) 09/24/23 04:26 BUN 4 mg/dL (7-18) L 09/24/23 04:26 Creatinine 0.63 mg/dL (0.55-1.02) 09/24/23 04:26 Est GFR (MDRD) Af Amer > 60 (>60) 09/24/23 04:26 Est GFR (MDRD) Non-Af > 60 (>60) 09/24/23 04:26 Glucose 103 mg/dL (65-99) H 09/24/23 04:26 Calcium 8.2 mg/dL (8.5-10.1) L 09/24/23 04:26 Corrected Calcium 9.5 mg/dL (8.5-10.1) 09/24/23 04:26 Magnesium 1.7 mg/dL (2.0-2.9) L 09/24/23 04:26 Total Bilirubin 0.20 mg/dL (0.2-1.0) 09/24/23 04:26 AST 15 Units/L (15-37) 09/24/23 04:26 ALT 11 Units/L (12-78) L 09/24/23 04:26 Alkaline Phosphatase 71 Units/L (46-116) 09/24/23 04:26 Total Protein 5.5 g/dL (6.4-8.2) L 09/24/23 04:26 Albumin 2.4 g/dL (3.4-5.0) L 09/24/23 04:26 Globulin 3.1 g/dL (2.5-4.5) 09/24/23 04:26 Albumin/Globulin Ratio 0.8 Ratio (1.1-2.1) L 09/24/23 04:26 Specimen Type Clean catch urine 09/19/23 15:00 Urine Color Yellow (YELLOW) 09/19/23 15:00 Urine Appearance Cloudy (CLEAR) 09/19/23 15:00 Urine pH 6.0 (5.0 - 8.0) 09/19/23 15:00 Ur Specific [place] 1.020 (1.000-1.030) 09/19/23 15:00 Urine Protein 2+ (NEGATIVE) 09/19/23 15:00 Urine Glucose (UA) Negative (NEGATIVE) 09/19/23 15:00 Urine Ketones Negative (NEGATIVE) 09/19/23 15:00 Urine Blood 2+ (NEGATIVE) 09/19/23 15:00 Urine Nitrite Negative (NEGATIVE) 09/19/23 15:00 Urine Bilirubin Negative (NEGATIVE) 09/19/23 15:00 Urine Urobilinogen Normal (NORMAL) 09/19/23 15:00 Ur Leukocyte Esterase 3+ (NEGATIVE) 09/19/23 15:00 Urine RBC 5-10 /HPF (0-3) A 09/19/23 15:00 Urine WBC 30-50 /HPF (0-5) A 09/19/23 15:00 Ur Squamous Epith Cells Rare /HPF (NEGATIVE) 09/19/23 15:00 Urine Bacteria 3+ /HPF (NEGATIVE) 09/19/23 15:00 Ur Culture Indicated? Yes/culture set up 09/19/23 15:00 Stool for White Cells Positive (NEGATIVE) A 09/21/23 10:50 Stl C. diff Tox B Gene Positive (NEGATIVE) A 09/21/23 10:50 Stl C. diff [id number]-[id number] Presumptive negative (NEGATIVE) 09/21/23 10:50 C. difficile Toxin A&B Positive (NEGATIVE) A 09/21/23 10:50 Plan (1) C. difficile diarrhea: Status: Acute (2) UTI (urinary tract infection): Status: Acute Qualifiers: Urinary tract infection type: acute cystitis Hematuria presence: without hematuria Qualified Code(s): N30.00 - Acute cystitis without hematuria (3) Hypokalemia: Status: Acute (4) Hypomagnesemia: Status: Acute (5) Colovaginal fistula: Status: Acute (6) Hypothyroidism: Status: Acute Qualifiers: Hypothyroidism type: acquired Qualified Code(s): E03.9 - Hypothyroidism, unspecified (7) GERD (gastroesophageal reflux disease): Status: Acute Qualifiers: Esophagitis presence: esophagitis presence not specified Qualified Code(s): K21.9 - Gastro-esophageal reflux disease without esophagitis (8) Hyperlipidemia: Status: Acute Qualifiers: Hyperlipidemia type: mixed hyperlipidemia Qualified Code(s): E78.2 - Mixed hyperlipidemia (9) Hypertension: Status: Acute Qualifiers: Hypertension type: primary hypertension Qualified Code(s): I10 - Essential (primary) hypertension
[2023-09-24] MEDS: VSL#3 PROBIOTIC CAP 112.5 B PO SCH (10:26)
[2023-09-25 06:10] LABS: BASOPHILS % (AUTO) 0.8 % (0.2-1.0); EOSINOPHILS # (AUTO) 0.3 x10^3/uL (0.0-0.2); EOSINOPHILS % (AUTO) 6.9 % (0.9-2.9); HEMATOCRIT 28.8 % (36.0-47.0); HEMOGLOBIN 9.8 g/dL (12.0-16.0); LYMPHOCYTES # (AUTO) 1.8 X10^3/uL (1.3-2.9); LYMPHOCYTES % (AUTO) 42.8 % (21.0-51.0); MEAN CORPUSCULAR HEMOGLOBIN 30.8 pg (27.0-34.0); MEAN CORPUSCULAR HGB CONC 34.1 g/dL (33.0-35.0); MEAN CORPUSCULAR VOLUME 90.3 fL (80.0-100.0); MEAN PLATELET VOLUME 7.4 fL (7.4-11.0); MONOCYTES # (AUTO) 0.4 x10^3/uL (0.3-0.8); NEUTROPHILS # (AUTO) 1.7 x10^3/uL (2.2-4.8); NEUTROPHILS % (AUTO) 39.5 % (42.0-75.0); PLATELET COUNT 266 X10^3/uL (150.0-450.0); RED BLOOD COUNT 3.19 X10^6/uL (3.5-5.4); RED CELL DISTRIBUTION WIDTH 14.9 % (11.6-16.5); WHITE BLOOD COUNT 4.3 X10^3/uL (3.6-10.0)
[2023-09-25 06:26] LABS: ALANINE AMINOTRANSFERASE 11 Units/L (12-78); ALBUMIN 2.3 g/dL (3.4-5.0); ALKALINE PHOSPHATASE 68 Units/L (46-116); ASPARTATE AMINO TRANSFERASE 15 Units/L (15-37); BLOOD UREA NITROGEN 4 mg/dL (7-18); CALCIUM 8.3 mg/dL (8.5-10.1); CARBON DIOXIDE 29.3 mmol/L (21-32); CHLORIDE 106 mmol/L (98-107); COR CA(FOR HYPOALB) 9.7 mg/dL (8.5-10.1); GLUCOSE 90 mg/dL (65-99); MAGNESIUM 1.8 mg/dL (2.0-2.9); POTASSIUM 3.9 mmol/L (3.5-5.1); SODIUM 142 mmol/L (136-145); TOTAL PROTEIN 5.4 g/dL (6.4-8.2); eGFR NON BLACK RACES > 60 (>60)
[2023-09-25] MEDS ORDERED: CONSULT PHARMACY - POTASSIUM & MAGNESIUM XX SCH (07:00)
[2023-09-25] MEDS: K-DUR TAB 20 MEQ PO SCH (08:59)
[2023-09-25] MEDS: MAG-OX TAB PO SCH (08:59)
--- NOTE | 2023-09-25 10:32 | PCM.PROG ---
Progress Note Progress Note for Day of Date of Exam: 09/25/23 Subjective Subjective: Patient seen at bedside, she had 5 BMs overnight. She has not had any today. She reports drinking some fluids and eating yogurt/fruit. She states abdominal cramps are better today. Labs/imaging reviewed -Hgb 9.8 WBC:4.3 BUN/Cr: 4/0.60 Ma.7 Plan: Will start hydration with NS and MVI. Monitor labs, replace electrolytes prn. Continue current diet and probiotics. Add bentyl. Continue Ensure. Continue PO Vancomycin and Levaquin. Continue home medications. PT as tolerated. Continue wound care, change dressing daily. Monitor AM labs. Past Medical Family Social History Allergies: Allergies No Known Drug Allergies Allergy (Verified 09/14/23 17:40) Vital Signs and I&O's Vital Signs: Vital Signs Temperature 98.3 F Pulse Rate [Left Brachial] 89 Respiratory Rate 20 Respiratory Rate 18 Blood Pressure [Left Arm] 112/62 O2 Sat by Pulse Oximetry 100 Intake and Output: Intake & Output 09/22/23 09/23/23 09/24/23 09/25/23 23:59 23:59 23:59 23:59 Intake Total 980 / 980 1240 / 1240 1900 / 1900 Balance 980 / 980 1240 / 1240 1900 / 1900 Physical Exam Oriented: Normal Eyes: Normal Ear: Normal Nose: Normal Throat: Normal Respiratory: Normal Cardiovascular: Normal Auscultation: Bowel Sounds: Increased Tenderness: Mild Skin: Other (abdominal mark noted) Musculoskeletal: Normal Psychiatric: Normal Mood Description: Calm and Appropriate Affect: Normal Speech Pattern: Clear and Appropriate Laboratory and Diagnostics 09/25/23 05:48 09/25/23 05:48 Labs: 09/21/23 10:50 Stool Stool Culture - Final 09/21/23 10:50 Stool - Final 09/19/23 15:00 Urine,Clean Catch Urine Culture - Final Enterobacter Aerogenes Enterococcus Faecalis Laboratory WBC 4.3 X10^3/uL (3.6-10.0) 09/25/23 05:48 RBC 3.19 X10^6/uL (3.5-5.4) L 09/25/23 05:48 Hgb 9.8 g/dL (12.0-16.0) L 09/25/23 05:48 Hct 28.8 % (36.0-47.0) L 09/25/23 05:48 MCV 90.3 fL (80.0-100.0) 09/25/23 05:48 MCH 30.8 pg (27.0-34.0) 09/25/23 05:48 MCHC 34.1 g/dL (33.0-35.0) 09/25/23 05:48 RDW 14.9 % (11.6-16.5) 09/25/23 05:48 Plt Count 266 X10^3/uL (150.0-450.0) 09/25/23 05:48 MPV 7.4 fL (7.4-11.0) 09/25/23 05:48 Neut % (Auto) 39.5 % (42.0-75.0) L 09/25/23 05:48 Lymph % (Auto) 42.8 % (21.0-51.0) 09/25/23 05:48 [place] % (Auto) 10.0 % (0.0-13.0) 09/25/23 05:48 Eos % (Auto) 6.9 % (0.9-2.9) H 09/25/23 05:48 Baso % (Auto) 0.8 % (0.2-1.0) 09/25/23 05:48 Neut # (Auto) 1.7 x10^3/uL (2.2-4.8) L 09/25/23 05:48 Lymph # (Auto) 1.8 X10^3/uL (1.3-2.9) 09/25/23 05:48 [place] # (Auto) 0.4 x10^3/uL (0.3-0.8) 09/25/23 05:48 Eos # (Auto) 0.3 x10^3/uL (0.0-0.2) H 09/25/23 05:48 Baso # (Auto) 0.0 X10^3/uL (0.0-0.1) 09/25/23 05:48 Absolute Nucleated RBC 0.2 /100WBC 09/25/23 05:48 Sodium 142 mmol/L (136-145) 09/25/23 05:48 Corrected Sodium TNP 09/25/23 05:48 Potassium 3.9 mmol/L (3.5-5.1) 09/25/23 05:48 Chloride 106 mmol/L (98-107) 09/25/23 05:48 Carbon Dioxide 29.3 mmol/L (21-32) 09/25/23 05:48 BUN 4 mg/dL (7-18) L 09/25/23 05:48 Creatinine 0.60 mg/dL (0.55-1.02) 09/25/23 05:48 Est GFR (MDRD) Af Amer > 60 (>60) 09/25/23 05:48 Est GFR (MDRD) Non-Af > 60 (>60) 09/25/23 05:48 Glucose 90 mg/dL (65-99) 09/25/23 05:48 Calcium 8.3 mg/dL (8.5-10.1) L 09/25/23 05:48 Corrected Calcium 9.7 mg/dL (8.5-10.1) 09/25/23 05:48 Magnesium 1.8 mg/dL (2.0-2.9) L 09/25/23 05:48 Total Bilirubin 0.20 mg/dL (0.2-1.0) 09/25/23 05:48 AST 15 Units/L (15-37) 09/25/23 05:48 ALT 11 Units/L (12-78) L 09/25/23 05:48 Alkaline Phosphatase 68 Units/L (46-116) 09/25/23 05:48 Total Protein 5.4 g/dL (6.4-8.2) L 09/25/23 05:48 Albumin 2.3 g/dL (3.4-5.0) L 09/25/23 05:48 Globulin 3.1 g/dL (2.5-4.5) 09/25/23 05:48 Albumin/Globulin Ratio 0.7 Ratio (1.1-2.1) L 09/25/23 05:48 Specimen Type Clean catch urine 09/19/23 15:00 Urine Color Yellow (YELLOW) 09/19/23 15:00 Urine Appearance Cloudy (CLEAR) 09/19/23 15:00 Urine pH 6.0 (5.0 - 8.0) 09/19/23 15:00 Ur Specific [place] 1.020 (1.000-1.030) 09/19/23 15:00 Urine Protein 2+ (NEGATIVE) 09/19/23 15:00 Urine Glucose (UA) Negative (NEGATIVE) 09/19/23 15:00 Urine Ketones Negative (NEGATIVE) 09/19/23 15:00 Urine Blood 2+ (NEGATIVE) 09/19/23 15:00 Urine Nitrite Negative (NEGATIVE) 09/19/23 15:00 Urine Bilirubin Negative (NEGATIVE) 09/19/23 15:00 Urine Urobilinogen Normal (NORMAL) 09/19/23 15:00 Ur Leukocyte Esterase 3+ (NEGATIVE) 09/19/23 15:00 Urine RBC 5-10 /HPF (0-3) A 09/19/23 15:00 Urine WBC 30-50 /HPF (0-5) A 09/19/23 15:00 Ur Squamous Epith Cells Rare /HPF (NEGATIVE) 09/19/23 15:00 Urine Bacteria 3+ /HPF (NEGATIVE) 09/19/23 15:00 Ur Culture Indicated? Yes/culture set up 09/19/23 15:00 Stool for White Cells Positive (NEGATIVE) A 09/21/23 10:50 Stl C. diff Tox B Gene Positive (NEGATIVE) A 09/21/23 10:50 Stl C. diff 027-NAP1-BI Presumptive negative (NEGATIVE) 09/21/23 10:50 C. difficile Toxin A&B Positive (NEGATIVE) A 09/21/23 10:50 Plan (1) C. difficile diarrhea: Status: Acute (2) UTI (urinary tract infection): Status: Acute Qualifiers: Hematuria presence: without hematuria Urinary tract infection type: acu te cystitis Qualified Code(s): N30.00 - Acute cystitis without hematuria (3) Hypokalemia: Status: Acute (4) Hypomagnesemia: Status: Acute (5) Colovaginal fistula: Status: Acute (6) Hypothyroidism: Status: Acute Qualifiers: Hypothyroidism type: acquired Qualified Code(s): E03.9 - Hypothyro idism, unspecified (7) GERD (gastroesophageal reflux disease): Status: Acute Qualifiers: Esophagitis presence: esophagitis presence not specified Qualified Code(s): K21.9 - Gastro-esophageal reflux disease without esophagitis (8) Hyperlipidemia: Status: Acute Qualifiers: Hyperlipidemia type: mixed hyperlipidemia Qualified Code(s): E78.2 - Mixed hyperlipidemia (9) Hypertension: Status: Acute Qualifiers: Hypertension type: primary hypertension Qualified Code(s): I10 - Essential (primary) hypertension
[2023-09-25] MEDS: BENTYL CAP 10 MG PO SCH (11:12)
[2023-09-25] MEDS: NS 1,000 ML IV 1,000 ML with MVI INJ (ADULT) 10 ML IV SCH (11:13)
[2023-09-26 06:19] LABS: BASOPHILS # (AUTO) 0.1 X10^3/uL (0.0-0.1); BASOPHILS % (AUTO) 1.6 % (0.2-1.0); EOSINOPHILS # (AUTO) 0.2 x10^3/uL (0.0-0.2); HEMATOCRIT 26.8 % (36.0-47.0); HEMOGLOBIN 8.9 g/dL (12.0-16.0); LYMPHOCYTES # (AUTO) 1.4 X10^3/uL (1.3-2.9); LYMPHOCYTES % (AUTO) 35.8 % (21.0-51.0); MEAN CORPUSCULAR HEMOGLOBIN 30.3 pg (27.0-34.0); MEAN CORPUSCULAR HGB CONC 33.2 g/dL (33.0-35.0); MEAN CORPUSCULAR VOLUME 91.2 fL (80.0-100.0); MEAN PLATELET VOLUME 7.7 fL (7.4-11.0); MONOCYTES # (AUTO) 0.5 x10^3/uL (0.3-0.8); MONOCYTES % (AUTO) 11.5 % (0.0-13.0); NEUTROPHILS # (AUTO) 1.8 x10^3/uL (2.2-4.8); NEUTROPHILS % (AUTO) 45.1 % (42.0-75.0); PLATELET COUNT 237 X10^3/uL (150.0-450.0); RED BLOOD COUNT 2.93 X10^6/uL (3.5-5.4); RED CELL DISTRIBUTION WIDTH 15.4 % (11.6-16.5)
[2023-09-26 06:52] LABS: ALANINE AMINOTRANSFERASE 9 Units/L (12-78); ALBUMIN 2.2 g/dL (3.4-5.0); ALKALINE PHOSPHATASE 60 Units/L (46-116); ASPARTATE AMINO TRANSFERASE 15 Units/L (15-37); BLOOD UREA NITROGEN 3 mg/dL (7-18); CALCIUM 7.8 mg/dL (8.5-10.1); CARBON DIOXIDE 25.9 mmol/L (21-32); CHLORIDE 110 mmol/L (98-107); COR CA(FOR HYPOALB) 9.2 mg/dL (8.5-10.1); CREATININE 0.53 mg/dL (0.55-1.02); GLUCOSE 90 mg/dL (65-99); MAGNESIUM 1.7 mg/dL (2.0-2.9); POTASSIUM 3.8 mmol/L (3.5-5.1); SODIUM 143 mmol/L (136-145); eGFR NON BLACK RACES > 60 (>60)
[2023-09-26] MEDS: STERILE WATER IRRIGATION IR ONE (07:24)
[2023-09-26] MEDS ORDERED: CONSULT PHARMACY - POTASSIUM & MAGNESIUM XX SCH (08:00)
[2023-09-26] MEDS: K-DUR TAB 20 MEQ PO SCH (09:17)
[2023-09-26] MEDS: MAG-OX TAB PO SCH (09:19)
--- NOTE | 2023-09-26 09:52 | PCM.PROG ---
Progress Note Progress Note for Day of Date of Exam: 09/26/23 Subjective Subjective: Patient seen at bedside, no acute events overnight. She is feeling better today, diarrhea has slowed down. She was able to eat a little bit yesterday and this morning. She has been working with PT as tolerated in the room. She is currently on PO Vancomycin for C diff and Levaquin for UTI. Labs/imaging reviewed -Hgb 8.9 WBC:4.30BUN/Cr: 3/0.53 Plan: Continue hydration with NS and MVI till this afternoon. Monitor labs, replace electrolytes prn. Continue current diet and probiotics. Continue Ensure. Continue PO Vancomycin and Levaquin. Continue home medications. PT as tolerated. Continue wound care, change dressing daily. Monitor AM labs. Past Medical Family Social History Allergies: Allergies No Known Drug Allergies Allergy (Verified 09/14/23 17:40) Vital Signs and I&O's Vital Signs: Vital Signs Temperature 98.1 F Pulse Rate [Left Brachial] 89 Respiratory Rate 18 Respiratory Rate 18 Respiratory Rate 20 Blood Pressure [Left Arm] 138/63 O2 Sat by Pulse Oximetry 96 Intake and Output: Intake & Output 09/23/23 09/24/23 09/25/23 09/26/23 23:59 23:59 23:59 23:59 Intake Total 1240 / 1240 1900 / 1900 1765 / 1765 0 / 0 Balance 1240 / 1240 1900 / 1900 1765 / 1765 0 / 0 Physical Exam Oriented: Normal Eyes: Normal Ear: Normal Nose: Normal Throat: Normal Respiratory: Normal Cardiovascular: Normal : Normal Auscultation: Bowel Sounds: Normal Palpation: Normal Tenderness: Mild Skin: Other (abdominal mark noted) Musculoskeletal: Normal Psychiatric: Normal Mood Description: Calm and Appropriate Affect: Normal Speech Pattern: Clear and Appropriate Laboratory and Diagnostics 09/26/23 05:30 09/26/23 05:30 Labs: 09/21/23 10:50 Stool Stool Culture - Final 09/21/23 10:50 Stool - Final 09/19/23 15:00 Urine,Clean Catch Urine Culture - Final Enterobacter Aerogenes Enterococcus Faecalis Laboratory WBC 4.0 X10^3/uL (3.6-10.0) 09/26/23 05:30 RBC 2.93 X10^6/uL (3.5-5.4) L 09/26/23 05:30 Hgb 8.9 g/dL (12.0-16.0) L 09/26/23 05:30 Hct 26.8 % (36.0-47.0) L 09/26/23 05:30 MCV 91.2 fL (80.0-100.0) 09/26/23 05:30 MCH 30.3 pg (27.0-34.0) 09/26/23 05:30 MCHC 33.2 g/dL (33.0-35.0) 09/26/23 05:30 RDW 15.4 % (11.6-16.5) 09/26/23 05:30 Plt Count 237 X10^3/uL (150.0-450.0) 09/26/23 05:30 MPV 7.7 fL (7.4-11.0) 09/26/23 05:30 Neut % (Auto) 45.1 % (42.0-75.0) 09/26/23 05:30 Lymph % (Auto) 35.8 % (21.0-51.0) 09/26/23 05:30 [place] % (Auto) 11.5 % (0.0-13.0) 09/26/23 05:30 Eos % (Auto) 6.0 % (0.9-2.9) H 09/26/23 05:30 Baso % (Auto) 1.6 % (0.2-1.0) H 09/26/23 05:30 Neut # (Auto) 1.8 x10^3/uL (2.2-4.8) L 09/26/23 05:30 Lymph # (Auto) 1.4 X10^3/uL (1.3-2.9) 09/26/23 05:30 [place] # (Auto) 0.5 x10^3/uL (0.3-0.8) 09/26/23 05:30 Eos # (Auto) 0.2 x10^3/uL (0.0-0.2) 09/26/23 05:30 Baso # (Auto) 0.1 X10^3/uL (0.0-0.1) 09/26/23 05:30 Absolute Nucleated RBC 0.1 /100WBC 09/26/23 05:30 Sodium 143 mmol/L (136-145) 09/26/23 05:30 Corrected Sodium TNP 09/26/23 05:30 Potassium 3.8 mmol/L (3.5-5.1) 09/26/23 05:30 Chloride 110 mmol/L (98-107) H 09/26/23 05:30 Carbon Dioxide 25.9 mmol/L (21-32) 09/26/23 05:30 BUN 3 mg/dL (7-18) L 09/26/23 05:30 Creatinine 0.53 mg/dL (0.55-1.02) L 09/26/23 05:30 Est GFR (MDRD) Af Amer > 60 (>60) 09/26/23 05:30 Est GFR (MDRD) Non-Af > 60 (>60) 09/26/23 05:30 Glucose 90 mg/dL (65-99) 09/26/23 05:30 Calcium 7.8 mg/dL (8.5-10.1) L 09/26/23 05:30 Corrected Calcium 9.2 mg/dL (8.5-10.1) 09/26/23 05:30 Magnesium 1.7 mg/dL (2.0-2.9) L 09/26/23 05:30 Total Bilirubin 0.10 mg/dL (0.2-1.0) L 09/26/23 05:30 AST 15 Units/L (15-37) 09/26/23 05:30 ALT 9 Units/L (12-78) L 09/26/23 05:30 Alkaline Phosphatase 60 Units/L (46-116) 09/26/23 05:30 Total Protein 5.0 g/dL (6.4-8.2) L 09/26/23 05:30 Albumin 2.2 g/dL (3.4-5.0) L 09/26/23 05:30 Globulin 2.8 g/dL (2.5-4.5) 09/26/23 05:30 Albumin/Globulin Ratio 0.8 Ratio (1.1-2.1) L 09/26/23 05:30 Specimen Type Clean catch urine 09/19/23 15:00 Urine Color Yellow (YELLOW) 09/19/23 15:00 Urine Appearance Cloudy (CLEAR) 09/19/23 15:00 Urine pH 6.0 (5.0 - 8.0) 09/19/23 15:00 Ur Specific [place] 1.020 (1.000-1.030) 09/19/23 15:00 Urine Protein 2+ (NEGATIVE) 09/19/23 15:00 Urine Glucose (UA) Negative (NEGATIVE) 09/19/23 15:00 Urine Ketones Negative (NEGATIVE) 09/19/23 15:00 Urine Blood 2+ (NEGATIVE) 09/19/23 15:00 Urine Nitrite Negative (NEGATIVE) 09/19/23 15:00 Urine Bilirubin Negative (NEGATIVE) 09/19/23 15:00 Urine Urobilinogen Normal (NORMAL) 09/19/23 15:00 Ur Leukocyte Esterase 3+ (NEGATIVE) 09/19/23 15:00 Urine RBC 5-10 /HPF (0-3) A 09/19/23 15:00 Urine WBC 30-50 /HPF (0-5) A 09/19/23 15:00 Ur Squamous Epith Cells Rare /HPF (NEGATIVE) 09/19/23 15:00 Urine Bacteria 3+ /HPF (NEGATIVE) 09/19/23 15:00 Ur Culture Indicated? Yes/culture set up 09/19/23 15:00 Stool for White Cells Positive (NEGATIVE) A 09/21/23 10:50 Stl C. diff Tox B Gene Positive (NEGATIVE) A 09/21/23 10:50 Stl C. diff 027-NAP1-BI Presumptive negative (NEGATIVE) 09/21/23 10:50 C. difficile Toxin A&B Positive (NEGATIVE) A 09/21/23 10:50 Plan (1) C. difficile diarrhea: Status: Acute (2) UTI (urinary tract infection): Status: Acute Qualifiers: Urinary tract infection type: acute cystitis Hematuria presence: without hematuria Qualified Code(s): N30.00 - Acute cystitis without hematuria (3) Hypokalemia: Status: Acute (4) Hypomagnesemia: Status: Acute (5) Colovaginal fistula: Status: Acute (6) Hypothyroidism: Status: Acute Qualifiers: Hypothyroidism type: acquired Qualified Code(s): E03.9 - Hypothyroidism, unspecified (7) GERD (gastroesophageal reflux disease): Status: Acute Qualifiers: Esophagitis presence: esophagitis presence not specified Qualified Code(s): K21.9 - Gastro-esophageal reflux disease without esophagitis (8) Hyperlipidemia: Status: Acute Qualifiers: Hyperlipidemia type: mixed hyperlipidemia Qualified Code(s): E78.2 - Mixed hyperlipidemia (9) Hypertension: Status: Acute Qualifiers: Hypertension type: primary hypertension Qualified Code(s): I10 - Essential (primary) hypertension
[2023-09-26 23:38] VITALS: TEMP 98.3
[2023-09-27 06:20] LABS: BASOPHILS # (AUTO) 0.1 X10^3/uL (0.0-0.1); BASOPHILS % (AUTO) 1.1 % (0.2-1.0); EOSINOPHILS # (AUTO) 0.4 x10^3/uL (0.0-0.2); EOSINOPHILS % (AUTO) 8.4 % (0.9-2.9); HEMATOCRIT 28.9 % (36.0-47.0); HEMOGLOBIN 9.7 g/dL (12.0-16.0); LYMPHOCYTES # (AUTO) 1.6 X10^3/uL (1.3-2.9); LYMPHOCYTES % (AUTO) 36.1 % (21.0-51.0); MEAN CORPUSCULAR HEMOGLOBIN 30.5 pg (27.0-34.0); MEAN CORPUSCULAR HGB CONC 33.6 g/dL (33.0-35.0); MEAN CORPUSCULAR VOLUME 90.8 fL (80.0-100.0); MEAN PLATELET VOLUME 7.7 fL (7.4-11.0); MONOCYTES # (AUTO) 0.4 x10^3/uL (0.3-0.8); MONOCYTES % (AUTO) 9.9 % (0.0-13.0); NEUTROPHILS % (AUTO) 44.5 % (42.0-75.0); PLATELET COUNT 233 X10^3/uL (150.0-450.0); RED BLOOD COUNT 3.18 X10^6/uL (3.5-5.4); RED CELL DISTRIBUTION WIDTH 15.3 % (11.6-16.5); WHITE BLOOD COUNT 4.5 X10^3/uL (3.6-10.0)
[2023-09-27 06:46] LABS: ALANINE AMINOTRANSFERASE 13 Units/L (12-78); ALBUMIN 2.4 g/dL (3.4-5.0); ALKALINE PHOSPHATASE 66 Units/L (46-116); ASPARTATE AMINO TRANSFERASE 18 Units/L (15-37); BLOOD UREA NITROGEN 1 mg/dL (7-18); CALCIUM 8.1 mg/dL (8.5-10.1); CARBON DIOXIDE 26.3 mmol/L (21-32); CHLORIDE 110 mmol/L (98-107); COR CA(FOR HYPOALB) 9.4 mg/dL (8.5-10.1); CREATININE 0.53 mg/dL (0.55-1.02); GLUCOSE 85 mg/dL (65-99); MAGNESIUM 1.7 mg/dL (2.0-2.9); POTASSIUM 3.5 mmol/L (3.5-5.1); SODIUM 144 mmol/L (136-145); TOTAL PROTEIN 5.4 g/dL (6.4-8.2); eGFR NON BLACK RACES > 60 (>60)
[2023-09-27 09:47] VITALS: BP 118/59; PULSE 78; RESP 18; O2SAT 96
== END 2023-09-27 10:57 | disposition home health service (06) | DRG 949 ==
LOC: MED/SURG 16:38
PROVIDERS: ADMIT Family Medicine; ATTEND Family Medicine